=== PATIENT | female | born 2000 | race Caucasian/White ===

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

== ENCOUNTER 2022-02-24 09:48 | Emergency (ER) | payer MEDICAID ==
[~2022-02-24] VITALS: Ht 165.1 cm; Wt 55.0 kg
[2022-02-24 10:01] VITALS: BP 140/55
[2022-02-24] MEDS ORDERED: dexamethasone 4mg tablet PO ONE ×2 (10:10→10:15)
[2022-02-24] MEDS ORDERED: azithromycin 250mg tablet PO ONE (10:10)
[2022-02-24] MEDS ORDERED: AZIT250T2 PO (10:14)
== END 2022-02-24 10:27 | disposition home or self-care (01) ==
LOC: ER 09:49
DX: J02.0 Streptococcal pharyngitis (principal); R07.0 Pain in throat; R05.9 Cough, unspecified; H57.12 Ocular pain, left eye; F17.200 Nicotine dependence, unspecified, uncomplicated; Z72.89 Other problems related to lifestyle; Z79.2 Long term (current) use of antibiotics; Z79.899 Other long term (current) drug therapy
CPT/HCPCS: 99283